=== PATIENT | female | born 2000 | race Caucasian/White ===

== ENCOUNTER 2023-06-29 20:47 | Emergency (ER) | payer SELFPAY ==
[2023-06-29 21:03] VITALS: BP 135/84; PULSE 58; RESP 14; TEMP 36.8; O2SAT 100; BMI 26.2
[2023-06-29 21:20] LABS: MANUAL DIFF FLAG NO
[2023-06-29 21:21] LABS: Basophils Percent Auto 0.4 % (0-2); Eosinophils Absolute Auto 0.1 X10*3/uL (0.0-0.4); Eosinophils Percent Auto 1.5 % (0-4); Hematocrit 37.3 % (37.0-47.0); Hemoglobin 12.6 g/dl (12.0-16.0); Imm Gran Abs Auto 0.01 X10*3/uL (0.00-0.03); Imm Gran Pct Auto 0.1 % (0.0-0.4); Lymphocytes Percent Auto 42.7 % (20-40); Mean Corpuscular HGB Conc 33.8 g/dl (31.0-35.0); Mean Corpuscular Hemoglobin 30.1 pg (27.0-33.0); Mean Corpuscular Volume 89.2 fL (80.0-98.0); Mean Platelet Volume 8.9 fL (9.4-12.3); Monocytes Absolute Auto 0.5 X10*3/uL (0.1-1.2); Monocytes Percent Auto 7.2 % (2-11); Neutrophils Absolute Auto 3.4 x10*3/uL (2.0-8.3); Neutrophils Percent Auto 48.1 % (45-73); Platelet Count 203 X10*3/uL (160-400); Red Blood Count 4.18 X10*6/uL (4.20-5.50); Red Cell Distribution Width 12.5 % (11.0-16.0); White Blood Count 7.1 X10*3/uL (4.8-10.8)
[2023-06-29 21:35] LABS: Alanine Aminotransferase 14 U/L (0-31); Albumin Level 3.8 g/dL (3.5-5.0); Alkaline Phosphatase 46 U/L (39-117); Anion Gap 7 (12-20); Aspartate Amino Transferase 18 U/L (5-31); Bilirubin Total 0.2 mg/dL (0.0-1.0); Blood Urea Nitrogen 10 mg/dL (9-16); Calcium 8.9 mg/dL (8.4-10.2); Carbon Dioxide 28 mmol/L (22-29); Chloride 110 mmol/L (96-108); Creatinine Clr Calc Pharmacy 94.2; Estimated Glomerular Filt Rate > 60; Glucose Random 89 mg/dL (60-115); Potassium 3.8 mmol/L (3.3-5.1); Sodium 141 mmol/L (135-145); Total Protein 6.5 g/dL (6.5-8.0)
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
[2023-06-30 00:18] VITALS: BP 123/70; PULSE 50; RESP 20; TEMP 36.7; O2SAT 99
[2023-06-30] MEDS: Ketorolac Tromethamine 30 MG/ML VIAL IM (01:51)
[2023-06-30] MEDS: Acetaminophen 325 MG TABLET 975 MG PO (01:52)
[2023-06-30] MEDS: Ondansetron ODT 4 MG TAB.RAPDIS TRANSLINGU (01:52)
[2023-06-30 02:00] VITALS: BP 124/68; PULSE 59; RESP 16; TEMP 36.6; O2SAT 100
== END 2023-06-30 02:03 | disposition home or self-care (01) ==
PROVIDERS: Emergency Provider Emergency Medicine
DX: G44.319 Acute post-traumatic headache, not intractable (principal); M54.50 Low back pain, unspecified; R53.1 Weakness; R20.0 Anesthesia of skin
CPT/HCPCS: 36415; 80053; 85025; 96372; 99283; 99284; J1885

== ENCOUNTER 2024-06-18 08:56 | Emergency (ER) | payer OTHER, SELFPAY ==
[2024-06-18 09:17] VITALS: BP 140/87; PULSE 82; RESP 18; TEMP 37.5; O2SAT 100; BMI 23.6
--- NOTE | 2024-06-18 10:19 | ED_ITS ---
HPI - General Adult General Chief complaint: General Medical Stated complaint: Withdrawals Med Refill Time Seen by Provider: 06/18/24 09:53 Source: patient and RN notes reviewed Mode of arrival: ambulatory Limitations: no limitations History of Present Illness ED Provider: Neris Schultz PA-C HPI narrative: This is a 24-year-old female, with a past medical history of bipolar disorder, who presents emergency department emergency department with complaints of increased anxiety and medication management. Patient reports that she has been noncompliant with her medications. She states that she was previously prescribed Trileptal and lorazepam. [facility] At that time she was prescribed Ativan, which she ran out of the 3 weeks ago. 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 She rescheduled another appointment however is not able to be seen until July 24. Patient states that she has not had Ativan in over 3 weeks. She states that she noticed that her anxiety, and mental status was declining therefore she started taking Trileptal which was previously prescribed to her, she started taking this approximately 3 days ago however has not noticed any changes. Patient currently received methadone, was seen at the office today to receive her take on bottles, and the physician data assistant requested her to go to the emergency room for further evaluation. She denies any suicidal or homicidal ideation. Denies any alcohol or drug use. Patient reports that she has recently lost her license, she has lost her job, she feels as though her life is falling apart and needs help and stabilization. No other complaints or concerns at this time. MD complaint: ? Arjun, medication noncompliance Onset (ago): week(s) Relieving factors: none Exacerbating factors: none Associated symptoms: denies other symptoms Treatments prior to arrival: none Related Data Previous Rx's ?Medication ?Instructions ?Recorded ibuprofen 600 mg tablet 600 mg PO Q6H PRN pain #10 tabs 06/30/23 ondansetron 4 mg disintegrating 4 mg PO Q6H PRN nausea and 06/30/23 tablet vomiting #7 tabs Allergies Allergy/AdvReac Type Severity Reaction Status Date / Time No Known Allergies Allergy Verified 06/18/24 09:19 Review of Systems 2 Review of Systems: Yes all other systems are reviewed and are negative Constitutional: Constitutional: Reports as per [facility] Past Medical History Attestation statement: The following information was validated with the patient. Social History Social History Advance Directives: No Advance Directives Information Provided: Yes Patient : No Physical Exam ED Vital Signs: Vital Signs - 24 hr 06/18/24 09:17 06/18/24 13:31 Temperature 99.5 F 0 F L Pulse Rate 82 0 L Respiratory Rate 18 0 L Blood Pressure 140/87 H 0/0 L Pulse Oximetry 100 0 L Oxygen Delivery Method Room Air BMI result Body Mass Index 23.6 Const General: cooperative, comfortable and no acute distress Orientation/consciousness: patient oriented x3 Limitations: no limitations HENMT Head: Yes normal to inspection, Yes normocephalic and Yes atraumatic Ears: hearing grossly normal bilaterally General nose exam: Normal external nose present Face and sinus: Yes normal facial exam Mouth: Normal oral and palatal mucosa present, oropharynx normal and moist mucous membranes Throat: Yes posterior oropharynx normal Eyes General: appearance normal, both eyes and all related structures Eyelids: Yes eyelids normal Conjunctivae: conjunctivae normal Sclerae: sclerae normal Pupils: Equal, round and reactive pupils present EOM: EOMs intact bilaterally Neck Neck: Yes normal visual inspection, Yes full ROM and Yes no lymphadenopathy Lymphatic: no lymphadenopathy noted Chest Chest palpation & inspection: normal inspection of the chest Resp Effort & Inspection: normal respiratory effort and able to speak in complete sentences Auscultation: clear to auscultation bilaterally, no crackles, no rales, no rhonchi and no wheezes Cardio Rate: regular rate Rhythm: regular rhythm Heart sounds: S1 normal heart sound present and S2 normal heart sound present GI Inspection: Yes normal to inspection Skin General skin exam: no rashes or lesions noted Trauma: no lacerations or abrasions Wounds: no wounds Neuro General: patient oriented x3 and moves all extremities Cranial nerves: Yes Equal, round and reactive pupils present Extrem General: Yes normal to inspection Right upper extremity: normal to inspection Left upper extremity: normal to inspection Right lower extremity: normal to inspection Left lower extremity: normal to inspection Psych Appearance: well kempt Mental Status: mental status grossly normal Speech and movement: Pressured speech present and Restless speech present Affect: Anxious affect present Attitude: cooperative Thought process: Circumstantial thought process present and Flight of ideas present Thought content: Normal thought content present Insight: Limited insight present (Psych) Judgement: Limited judgement present (Psych) Course Reevaluation(s) Reevaluation #1: Labs returned, she has slight leukocytosis at 11.7k, no left shift, likely reactive. chemistry revealing no significant electrolyte derangement. Chemistry with no significant electrolyte derangement. TSH within normal limits. Patient was not . This time, patient is medically cleared. Awaiting care team consultation. Again she has no SI or HI. She is not made any threats, and can not be made section 12 at this time. I believe patient would be benefitted from being admitted psychiatrically for medical management of her bipolar disorder. Time: 11:36 Reevaluation #2: Care team saw patient, there is no imminent threat she has no SI or HI. There is no indication for section 12 at this time however will obtain collateral information. I spoke with patient, and stated that she should stay to be psychiatrically admitted for medical management to help with her stabilization of her bipolar disorder. Reevaluation #3: While obtaining collateral information from contacts listed in patient's medical chart, patient eloped from the emergency room. Care team spoke with patient's mother, and given all strict return precautions, and advised to section her should she become a threat to herself or others. Medications Administered Discontinued Medications Generic Name Dose Route Start Last Admin Trade Name Freq PRN Reason Stop Dose Admin Hydroxyzine HCl 25 mg 06/18/24 10:42 06/18/24 10:53 Hydroxyzine Hcl 25 Mg Tablet PO 06/18/24 10:43 25 mg ONCE ONE Administration Medical Decision Making Medical Decision Making MDM Narrative: This is a 24-year-old female who presents emergency department for evaluation of ? Arjun. On arrival, patient slightly hypertensive at 140/87, all other vital signs within normal limits. She is speaking in full sentences. She has no physical complaints. Patient walking around her room, anxious, tearful. She has a known diagnosis of bipolar disorder and has not been able to get her medications manage. She has no SI or HI. She was previously on Ativan, has not had a dose in over 3 weeks. Differential diagnoses include anxiety, depression, SI, HI, electrolyte derangement, psychosis, arjun, thyroid disorder. I discussed at length with patient, she is willing to have performed as well as ER. Patient would benefit from care team consultation. Patient does not have any thoughts of harming herself or others therefore patient does not need a sitter, she was voluntarily here. Plan: Labs, UA, U tox, care team consult Differential Diagnosis Differential Diagnoses: The differential diagnosis associated with the presentation includes See above Lab Data 06/18/24 10:48 06/18/24 10:48 Labs: Lab Results 06/18/24 06/18/24 06/18/24 Range/Units 10:48 10:54 11:19 WBC 11.7 H (4.8-10.8) X10*3/uL RBC 4.70 (4.20-5.50) X10*6/uL Hgb 14.0 (12.0-16.0) g/dl Hct 40.6 (37.0-47.0) % MCV 86.4 (80.0-98.0) fL MCH 29.8 (27.0-33.0) pg MCHC 34.5 (31.0-35.0) g/dl RDW 12.3 (11.0-16.0) % Plt Count 364 D (160-400) X10*3/uL MPV 8.8 L (9.4-12.3) fL Immature Gran % (Auto) 0.4 (0.0-0.4) % Neut % (Auto) 65.0 (45-73) % Lymph % (Auto) 26.0 (20-40) % [place] % (Auto) 7.5 (2-11) % Eos % (Auto) 0.4 (0-4) % Baso % (Auto) 0.7 (0-2) % Lymph # (Auto) 3.0 (1.2-4.9) X10*3/uL [place] # (Auto) 0.9 (0.1-1.2) X10*3/uL Eos # (Auto) 0.1 (0.0-0.4) X10*3/uL Baso # (Auto) 0.1 (0.0-0.2) X10*3/uL Abs Immat Gran (auto) 0.05 H (0.00-0.03) X10*3/uL Absolute Neuts (auto) 7.6 (2.0-8.3) x10*3/uL Absolute Nucleated RBC 0.000 (0.0-0.012) X10*3/uL Nucleated RBC % (auto) 0.0 (0.0-0.2) /100WBC Sodium 143 (135-145) mmol/L Potassium 3.9 (3.3-5.1) mmol/L Chloride 109 H (96-108) mmol/L Carbon Dioxide 26 (22-29) mmol/L Anion Gap 12 (12-20) BUN 10 (9-16) mg/dL Creatinine 0.96 (0.5-1.4) mg/dL Estim Creat Clear Calc 68.2 Estimated GFR > 60 Random Glucose 100 (60-115) mg/dL Calcium 10.0 D (8.4-10.2) mg/dL Magnesium 2.0 (1.6-2.6) mg/dL Total Bilirubin 0.3 (0.0-1.0) mg/dL Direct Bilirubin 0.1 (0.0-0.5) mg/dL AST 21 (5-31) U/L ALT 30 (0-31) U/L Alkaline Phosphatase 61 (39-117) U/L Total Protein 8.5 H (6.5-8.0) g/dL Albumin 4.7 (3.5-5.0) g/dL TSH 1.03 (0.32-4.0) uIU/mL Beta HCG, Quant < 2 mIU/mL Salicylates < 5.0 L (15-30) mg/dL Urine Opiates Screen Not Detected (Not Detect) Ur Buprenorphine Scrn Not Detected (Not Detect) ng/mL Ur Oxycodone Screen Not Detected (Not Detect) ng/mL Urine Methadone Screen Positive H (Not Detect) ng/mL Urine Fentanyl Screen Not Detected (Not Detect) Acetaminophen < 3 (<30) mcg/mL Ur Barbiturates Screen Not Detected (Not Detect) Ur Phencyclidine Scrn Not Detected (Not Detect) Ur Amphetamines Screen Not Detected (Not Detect) U Benzodiazepines Scrn Not Detected (Not Detect) Urine Cocaine Screen Not Detected (Not Detect) U Marijuana (THC) Screen POSITIVE H (Not Detect) Ethyl Alcohol < 10 mg/dL Discharge Plan Discharge Clinical Impression: Bipolar disorder Patient Disposition: Left W/O Completing Treatment Prescriptions: No Action ibuprofen 600 mg tablet 600 mg PO Q6H PRN (Reason: pain) Qty: 10 0RF ondansetron 4 mg tablet,disintegrating 4 mg PO Q6H PRN (Reason: nausea and vomiting) Qty: 7 0RF Interventions: ED Discharge Assessment Last Done: 06/18/24 13:31 Discharge Date/Time: 06/18/24 13:33
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
[2024-06-18 10:53] LABS: MANUAL DIFF FLAG NO
[2024-06-18] MEDS: hydrOXYzine HCL 25 MG TABLET PO (10:53)
[2024-06-18 10:56] LABS: Basophils Absolute Auto 0.1 X10*3/uL (0.0-0.2); Basophils Percent Auto 0.7 % (0-2); Eosinophils Absolute Auto 0.1 X10*3/uL (0.0-0.4); Eosinophils Percent Auto 0.4 % (0-4); Hematocrit 40.6 % (37.0-47.0); Imm Gran Abs Auto 0.05 X10*3/uL (0.00-0.03); Imm Gran Pct Auto 0.4 % (0.0-0.4); Mean Corpuscular HGB Conc 34.5 g/dl (31.0-35.0); Mean Corpuscular Hemoglobin 29.8 pg (27.0-33.0); Mean Corpuscular Volume 86.4 fL (80.0-98.0); Mean Platelet Volume 8.8 fL (9.4-12.3); Monocytes Absolute Auto 0.9 X10*3/uL (0.1-1.2); Monocytes Percent Auto 7.5 % (2-11); Neutrophils Absolute Auto 7.6 x10*3/uL (2.0-8.3); Platelet Count 364 X10*3/uL (160-400); Red Cell Distribution Width 12.3 % (11.0-16.0); White Blood Count 11.7 X10*3/uL (4.8-10.8)
[2024-06-18 11:19] LABS: Acetaminophen LAB < 3 mcg/mL (<30); Salicylate < 5.0 mg/dL (15-30)
[2024-06-18 11:19] LABS: Ethanol < 10 mg/dL; HCG Quantitative < 2 mIU/mL
[2024-06-18 11:20] LABS: Alanine Aminotransferase 30 U/L (0-31); Albumin Level 4.7 g/dL (3.5-5.0); Alkaline Phosphatase 61 U/L (39-117); Anion Gap 12 (12-20); Aspartate Amino Transferase 21 U/L (5-31); Bilirubin Direct 0.1 mg/dL (0.0-0.5); Bilirubin Total 0.3 mg/dL (0.0-1.0); Blood Urea Nitrogen 10 mg/dL (9-16); Carbon Dioxide 26 mmol/L (22-29); Chloride 109 mmol/L (96-108); Creatinine Clr Calc Pharmacy 68.2; Estimated Glomerular Filt Rate > 60; Glucose Random 100 mg/dL (60-115); Potassium 3.9 mmol/L (3.3-5.1); Sodium 143 mmol/L (135-145); Total Protein 8.5 g/dL (6.5-8.0)
[2024-06-18 11:33] LABS: TSH reflex Free T4 1.03 uIU/mL (0.32-4.0)
[2024-06-18 11:37] LABS: Amphetamine Screen Urine Not Detected (Not Detect); Barbiturates, Urine Not Detected (Not Detect); Benzodiazepines Screen Urine Not Detected (Not Detect); Buprenorphine Scr Not Detected (Not Detect); Cannabinoid Screen Urine POSITIVE (Not Detect); Cocaine Screen Urine Not Detected (Not Detect); Fentanyl, urine Not Detected (Not Detect); Methadone Screen, Urine Positive (Not Detect); Opiate Screen Urine Not Detected (Not Detect); Oxycodone Screen Urine Not Detected (Not Detect); Phencyclidine Screen Urine Not Detected (Not Detect)
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
[2024-06-18 13:31] VITALS: BP 0/0; PULSE 0; RESP 0; TEMP -17.7; TEMP 0; O2SAT 0
--- NOTE | 2024-06-18 16:27 | MHC.CARE ---
Patient put on alert at [facility].
--- NOTE | 2024-06-19 08:04 | PC.NURSE ---
T/w made contact with the patient at 0700. Pt denying SI/HI. Pt states she is safe and will seek help if that changes. Pt refusing to return to the hospital for a care team eval at this time.
== END 2024-06-18 13:33 | disposition left against medical advice (07) ==
PROVIDERS: Physician Assistant Medical; Emergency Provider Emergency Medicine Emergency Medical Services
DX: F41.1 Generalized anxiety disorder (principal); F31.9 Bipolar disorder, unspecified; Z79.899 Other long term (current) drug therapy; Z91.148 Patient's other noncompliance with medication regimen for other reason; Z51.81 Encounter for therapeutic drug level monitoring
CPT/HCPCS: 36415; 80048; 80076; 80143; 80179; 80307; 83735; 84443; 84702; 85025; 99284

== ENCOUNTER 2024-10-01 16:30 | Emergency (ER) | payer OTHER, SELFPAY ==
[2024-10-01 16:37] VITALS: BP 124/76; PULSE 114; O2SAT 96
[2024-10-01 16:39] VITALS: BP 124/76; PULSE 112; O2SAT 96
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
[2024-10-01 17:02] VITALS: RESP 16; BMI 22.3
[2024-10-01 17:17] VITALS: BP 104/67; PULSE 101; RESP 20; TEMP 37.1; O2SAT 98
--- OUTSIDE RECORDS SUMMARY | 2024-10-01 18:53 | XMS_ITS | Clinical Summary ---
Author Organization [facility] ity Address [address] [place] [address] Care Team Providers Care Marine Water Tender Name Role Phone Virgil Villasenor MD Primary [...] services Exercise-induced asthma 11/11/2015 Overview (03/27/2024): 09/19/13 [facility] notes she does not exercise much now [...] asthma 11/11/2015 DX:Exerc ise-induced asthma; COMMENT: 09/19/13 [facility] notes she does not exercise much now [...] Normal Depression 11/11/2015 DX:Depression; C OMMENT: 07/03/14 [place] ER. Agreed to [facility] f/u ODD (oppositional defiant disorder) 11/11/2015 DX:ODD [...] Vaccine ( - season) 2023 Influenza Vaccine (Season Ended) 2024 04/11/2018, 02/24/2011, 02/01/2010, Additional history exists DTaP,Tdap,and Td Vaccines (8 - Td or Tdap) 04/11/2028 04/11/2018, 08/07/2011, 01/27/2005, Additional history exists Hepatitis B Vaccines Completed 02/19/2001, 2000, 2000 HIB Vaccines Completed 07/29/2001, 07/09, 2000, Additional history exists IPV Vaccines Completed 01/27/2005, 090 12/2001, 07/29/2001, Additional history exists MMR Vaccines Completed 01/27/2005, 07/29/2001 Varicella Vaccines Completed 08/07/2011, 02/19/2001 HPV Vaccines Completed 11/25/2015, 08/15/2012 Meningococcal ACWY Vaccine Completed 06/07/2017, HIV Screening Completed 12/04/2017 Meningococcal B Vaccine Aged Out No l onger eligible based on patient's age to complete [...] * HIV Screening (12/04/2017) HIV Screening Abstracted us Historical Provider HEALTH MAINTENANCE Final Result from Last 3 Months or Most Recently Relevant to Health Maintenance Care Teams Marine Water Tender Relationship Specialty Start Date End Date Virgil Villasenor MD [address] [place] [id number] PCP - General 02/13/22
== END 2024-10-01 17:18 | disposition home or self-care (01) ==
PROVIDERS: Emergency Provider Internal Medicine
DX: F43.9 Reaction to severe stress, unspecified (principal)
CPT/HCPCS: 99282